=== PATIENT | male | born 1955 | race African-American/Black ===

== ENCOUNTER 2016-09-08 06:59 | Emergency (ER) | payer OTHER, MEDICAID ==
[~2016-09-08] VITALS: Ht 175.3 cm; Wt 69.0 kg
[~2016-09-08 06:59] MED LIST: ALBU6.7H IH; AMLO10TA80 PO; ASCO500C6 PO; ATOR-2 PO; BENZ100C86 PO; CEPH500C2 PO; CLOP75TA33 PO; DOCU-150 PO; FERR-63 PO; FLUO20TA29 PO; LISI10TA5 PO; LOSA100T14 PO; NICO1PAT15 TP; PANT40TA4 PO
[2016-09-08] MEDS ORDERED: METHYLPREDNISOLONE SOD SUCC 125 MG/2 ML VIAL IV STA (07:27)
[2016-09-08] MEDS ORDERED: IPRATROPIUM/ALBUTEROL 0.5-3(2.5)MG/3ML NEB HHN ONE (07:30)
[2016-09-08 07:42] LABS: BASOPHILS % 0.3 % (0.0-2.0); HEMATOCRIT. 33.2 % (42.0-52.0); HEMOGLOBIN. 11.1 g/dL (14.0-18.0); LYMPHOCYTES % 38.7 % (20.0-50.0); MEAN CORPUSCULAR HEMOGLOBIN 28.7 pg (28.0-32.0); MEAN CORPUSCULAR VOLUME 86.4 fL (80.0-94.0); MEAN PLATELET VOLUME 5.7 fl (7.4-10.4); MONOCYTES % 12.7 % (2.0-8.0); NEUTROPHILS % 43.3 % (40.0-76.0); PLATELET 398 x1000/uL (130-400); RED BLOOD CELL COUNT 3.85 mill/uL (4.7-6.1)
[2016-09-08 07:51] LABS: PARTIAL THROMBOPLASTIN TIME 28.2 sec (24.0-34.0); PROTHROMBIN TIME 10.9 sec
[2016-09-08 07:57] LABS: CARBON DIOXIDE 24 mEq/L (21-32); CHLORIDE 110 mEq/L (98-107); TROPONIN I < 0.02 ng/mL (0.00-0.04)
[2016-09-08 11:18] VITALS: BP 148/92
== END 2016-09-08 11:30 | disposition home or self-care (01) ==
LOC: ER 07:08
DX: J44.1 Chronic obstructive pulmonary disease with (acute) exacerbation (principal); I10 Essential (primary) hypertension; E78.00 Pure hypercholesterolemia, unspecified; Z91.013 Allergy to seafood; Z88.4 Allergy status to anesthetic agent; I69.351 Hemiplegia and hemiparesis following cerebral infarction affecting right dominant side
CPT/HCPCS: 36415; 71010; 80053; 83880; 84484; 85025; 85610; 85730; 93005; 94640; 96374; 99285; J2930; J7620

== ENCOUNTER 2016-09-29 03:48 | Emergency (ER) | payer OTHER, MEDICAID ==
[~2016-09-29] VITALS: Ht 185.4 cm; Wt 95.0 kg
[2016-09-29] MEDS ORDERED: SODIUM CHLORIDE 0.9% 500 ML IV ONE (04:21)
[2016-09-29] MEDS ORDERED: IPRATROPIUM BROMIDE (0.02%) 0.5MG/2.5ML NEB HHN STA (04:21)
[2016-09-29] MEDS ORDERED: ALBUTEROL (0.083%) 2.5MG/3ML NEB HHN STA (04:21)
[2016-09-29] MEDS ORDERED: METHYLPREDNISOLONE SOD SUCC 125 MG/2 ML VIAL IV STA (04:21)
[2016-09-29] MEDS ORDERED: MAGNESIUM 2 G PREMIX 50 ML IV ONE (04:30)
[2016-09-29 04:39] LABS: BASOPHILS % 0.5 % (0.0-2.0); EOSINOPHILS % 3.6 % (0.0-5.0); HEMATOCRIT. 36.8 % (42.0-52.0); HEMOGLOBIN. 12.2 g/dL (14.0-18.0); LYMPHOCYTES % 24.8 % (20.0-50.0); MEAN CORPUSCULAR HEMOGLOBIN 28.8 pg (28.0-32.0); MEAN PLATELET VOLUME 6.3 fl (7.4-10.4); MONOCYTES % 10.8 % (2.0-8.0); NEUTROPHILS % 60.3 % (40.0-76.0); PLATELET 379 x1000/uL (130-400); RED BLOOD CELL COUNT 4.23 mill/uL (4.7-6.1); RED CELL DISTRIBUTION WIDTH 16.1 % (11.6-14.6)
[2016-09-29 04:47] LABS: PROTHROMBIN TIME 10.2 sec
[2016-09-29 04:56] LABS: CARBON DIOXIDE 28 mEq/L (21-32); CHLORIDE 112 mEq/L (98-107); TROPONIN I < 0.02 ng/mL (0.00-0.04)
[2016-09-29 05:25] VITALS: BP 149/89
[2016-09-29] MEDS ORDERED: ALBUTEROL (0.5%) 2.5MG/0.5ML NEB HHN ONE ×2 (05:35→07:18)
== END 2016-09-29 06:38 | disposition home or self-care (01) ==
LOC: ER 03:48 → CANBEDREQ 16:10
DX: J44.1 Chronic obstructive pulmonary disease with (acute) exacerbation (principal); S09.90XA Unspecified injury of head, initial encounter; E78.00 Pure hypercholesterolemia, unspecified; I10 Essential (primary) hypertension; F17.200 Nicotine dependence, unspecified, uncomplicated; Z86.73 Personal history of transient ischemic attack (TIA), and cerebral infarction without residual deficits; Z88.8 Allergy status to other drugs, medicaments and biological substances; Z91.013 Allergy to seafood; X58.XXXA Exposure to other specified factors, initial encounter; Y93.89 Activity, other specified; Y99.8 Other external cause status; Y92.89 Other specified places as the place of occurrence of the external cause
CPT/HCPCS: 36415; 70450; 71010; 80053; 83605; 83690; 83880; 84484; 85025; 85610; 87040; 93005; 96365; 96375; 99285; J2930; J3475; J7040; J7611

== ENCOUNTER 2017-04-27 23:49 | Emergency (ER) | payer OTHER, MEDICAID ==
[~2017-04-27] VITALS: Ht 172.7 cm; Wt 82.0 kg
[2017-04-28] MEDS ORDERED: IPRATROPIUM BROMIDE (0.02%) 0.5MG/2.5ML NEB HHN STA (00:14)
[2017-04-28] MEDS ORDERED: ALBUTEROL (0.083%) 2.5MG/3ML NEB HHN STA (00:14)
[2017-04-28] MEDS ORDERED: METHYLPREDNISOLONE SOD SUCC 125 MG/2 ML VIAL IV STA (00:14)
[2017-04-28] MEDS ORDERED: MAGNESIUM 2 G PREMIX 50 ML IV STA (00:14)
[2017-04-28 01:05] LABS: HEMATOCRIT. 34.5 % (42.0-52.0); HEMOGLOBIN. 11.4 g/dL (14.0-18.0); MEAN CORPUSCULAR HEMOGLOBIN 29.2 pg (28.0-32.0); MEAN CORPUSCULAR VOLUME 88.5 fL (80.0-94.0); MEAN PLATELET VOLUME 6.5 fl (7.4-10.4); PLATELET 351 x1000/uL (130-400); RED BLOOD CELL COUNT 3.89 mill/uL (4.7-6.1)
[2017-04-28 01:07] LABS: CHLORIDE 107 mEq/L (98-107)
[2017-04-28 01:12] LABS: CARBON DIOXIDE 28 mEq/L (21-32)
[2017-04-28 04:52] LABS: PLATELET ESTIMATE NORMAL
[2017-04-28 06:02] VITALS: BP 115/73
[2017-05-02] MEDS ORDERED: TIOT4MIS3 IH (18:01)
[2017-05-02] MEDS ORDERED: SOFO1TAB PO (18:01)
[2017-05-02] MEDS ORDERED: BUDE6HFA INH (18:06)
[2017-05-02] MEDS ORDERED: ALBU18HF2 IH (18:06)
[2017-05-02] MEDS ORDERED: QUET50TA PO (18:16)
[2017-05-02] MEDS ORDERED: BACL-141 PO (18:20)
[2017-05-02] MEDS ORDERED: PRED1TAB PO (18:20)
[2017-05-02] MEDS ORDERED: GABA-529 PO (18:26)
== END 2017-04-28 06:04 | disposition home or self-care (01) ==
LOC: ER 23:49 → CANBEDREQ 04-28 06:31
DX: J45.901 Unspecified asthma with (acute) exacerbation (principal); J44.9 Chronic obstructive pulmonary disease, unspecified; I11.0 Hypertensive heart disease with heart failure; I50.9 Heart failure, unspecified; F17.210 Nicotine dependence, cigarettes, uncomplicated; Z71.6 Tobacco abuse counseling; Z86.19 Personal history of other infectious and parasitic diseases; Z91.013 Allergy to seafood; Z88.8 Allergy status to other drugs, medicaments and biological substances
CPT/HCPCS: 36415; 71045; 80048; 83605; 85025; 87040; 94640; 96365; 96375; 99291; 99406; J2930; J3475; J7611

== ENCOUNTER 2017-07-28 02:56 | Emergency (ER) | payer MEDICAID, OTHER ==
[~2017-07-28] VITALS: Ht 172.7 cm; Wt 63.0 kg
[~2017-07-28 02:56] MED LIST changes: +ALBU18HF2 IH; +BACL-141 PO; -BENZ100C86 PO; +BUDE6HFA INH; -CEPH500C2 PO; -DOCU-150 PO; -FERR-63 PO; +GABA-529 PO; -NICO1PAT15 TP; +PRED1TAB PO; +QUET50TA PO; +SOFO1TAB PO; +TIOT4MIS3 IH
[2017-07-28] MEDS ORDERED: IPRATROPIUM BROMIDE (0.02%) 0.5MG/2.5ML NEB HHN STA (02:59)
[2017-07-28] MEDS ORDERED: ALBUTEROL (0.083%) 2.5MG/3ML NEB HHN STA (02:59)
[2017-07-28] MEDS ORDERED: METHYLPREDNISOLONE SOD SUCC 125 MG/2 ML VIAL IV STA (02:59)
[2017-07-28] MEDS ORDERED: KETAMINE HCL 50 MG/ML 10ML IV ONE (03:00)
[2017-07-28] MEDS ORDERED: EPINEPHRINE 1:1000 1 MG/ML AMP IM ONE (03:00)
[2017-07-28] MEDS ORDERED: IPRATROPIUM/ALBUTEROL 0.5-3(2.5)MG/3ML NEB ONE (03:07)
[2017-07-28] MEDS ORDERED: CLONIDINE 0.1MG TABLET PO PRN (08:00)
[2017-07-28] MEDS ORDERED: IPRATROPIUM/ALBUTEROL 0.5-3(2.5)MG/3ML NEB HHN SCH (08:00)
[2017-07-28] MEDS ORDERED: ACETAMINOPHEN 325MG TABLET PO PRN (08:00)
[2017-07-28] MEDS ORDERED: HYDROCODONE/ACETAMINOPHEN 5/325MG TABLET PO PRN (08:00)
[2017-07-28] MEDS ORDERED: METHYLPREDNISOLONE SOD SUCC 40 MG/ML VIAL IV SCH (08:00)
[2017-07-28] MEDS ORDERED: ONDANSETRON HCL 4MG/2ML VIAL IV PRN (08:00)
[2017-07-28] MEDS ORDERED: IPRATROPIUM/ALBUTEROL 0.5-3(2.5)MG/3ML NEB HHN PRN (08:00)
[2017-07-28] MEDS ORDERED: BUDESONIDE 0.5MG/2ML NEB HHN SCH (08:00)
[2017-07-28 08:23] LABS: HEMATOCRIT. 35.2 % (42.0-52.0); HEMOGLOBIN. 12.2 g/dL (14.0-18.0); MEAN CORPUSCULAR VOLUME 89.5 fL (80.0-94.0); MEAN PLATELET VOLUME 6.3 fl (7.4-10.4); PLATELET 319 x1000/uL (130-400); RED BLOOD CELL COUNT 3.94 mill/uL (4.7-6.1); RED CELL DISTRIBUTION WIDTH 14.8 % (11.6-14.6)
[2017-07-28 08:25] LABS: CLARITY URINE CLEAR (CLEAR); COLOR URINE YELLOW (YELLOW); KETONES URINE NEGATIVE (NEGATIVE); LEUKOCYTE ESTERASE URINE NEGATIVE (NEGATIVE); NITRITE URINE NEGATIVE (NEGATIVE); OCCULT BLOOD URINE NEGATIVE (NEGATIVE); PROTEIN URINE NEGATIVE (NEGATIVE); SPECIFIC GRAVITY URINE 1.015 (1.005-1.030); UROBILINOGEN URINE 0.2 E.U./dL (0.2-1.0)
[2017-07-28 08:28] LABS: CHLORIDE 106 mEq/L (98-107)
[2017-07-28 08:50] LABS: *AMPHETAMINES SCREEN URINE NEGATIVE (NEGATIVE); *BARBITURATES SCREEN URINE NEGATIVE (NEGATIVE); *BENZODIAZEPINES SCREEN URINE PRESUMTIVE POSITIVE (NEGATIVE); METHADONE URINE SCREEN NEGATIVE (NEGATIVE); OPIATES URINE SCREEN NEGATIVE (NEGATIVE)
[2017-07-28 08:51] LABS: CANNABINOID URINE SCREEN NEGATIVE (NEGATIVE); PHENCYCLIDINE URINE SCREEN NEGATIVE (NEGATIVE)
[2017-07-28 08:58] LABS: *COCAINE SCREEN URINE PRESUMTIVE POSITIVE (NEGATIVE)
[2017-07-28] MEDS ORDERED: GABAPENTIN 100MG CAPSULE PO SCH (09:00)
[2017-07-28] MEDS ORDERED: FLUOXETINE HCL 20MG CAPSULE PO SCH (09:00)
[2017-07-28 09:16] LABS: PLATELET ESTIMATE NORMAL
[2017-07-28] MEDS ORDERED: FLUOXETINE HCL 20MG CAPSULE PO NR (11:00)
[2017-07-28] MEDS ORDERED: CLOPIDOGREL 75MG TABLET PO SCH (11:00)
[2017-07-28 11:55] LABS: BG BASE EXCESS -1.3 mmol/L (-2.0-2.0); BG BILEVEL POS AIRWAY PRESSURE 15/5; BG CARBOXYHEMOGLOBIN 0.3 % (0.5-1.5); BG DEOXYHEMOGLOBIN 0.6 % (0.0-5.0); BG FRACTION INSPIRED OXYGEN 100; BG HCO3 ACT 24.1 mmol/L (22.0-26.0); BG METHEMOGLOBIN 0.3 % (0.0-1.5); BG OXYGEN SATURATION 99.4 % (92.0-98.5); BG OXYHEMOGLOBIN 98.8 % (94.0-97.0); BG PCO2 42.9 mmHg (35.0-45.0); BG PH 7.367 (7.350-7.450); BG PO2 306.8 mmHg (75.0-100.0); BG SAMPLE SITE RIGHT BRACHIAL; BG TOTAL HEMOGLOBIN 13.2 g/dL (12.0-18.0); BG VENT MODE MASK - BIPAP; BG VENT RATE 20 set
[2017-07-28] MEDS ORDERED: NICOTINE 7MG PATCH TD SCH (13:00)
[2017-07-28 15:47] VITALS: BP 140/87
[2017-07-28] MEDS ORDERED: QUETIAPINE FUMARATE 50MG TABLET PO SCH (17:00)
[2017-07-28] MEDS ORDERED: ATORVASTATIN CALCIUM 40MG TABLET PO SCH (21:00)
== END 2017-07-28 15:56 | disposition left against medical advice (07) ==
LOC: ER 03:17 → EDBEDREQ 04:09 → EDBEDREQTM 04:09 → EDBEDREQSVC 04:09 → CANRESERV 15:25 → ENRESERV 15:25 → ER 15:56 → CANBEDREQ 16:21
DX: J44.1 Chronic obstructive pulmonary disease with (acute) exacerbation (principal); J96.00 Acute respiratory failure, unspecified whether with hypoxia or hypercapnia; J45.901 Unspecified asthma with (acute) exacerbation; I11.0 Hypertensive heart disease with heart failure; I50.9 Heart failure, unspecified; F17.210 Nicotine dependence, cigarettes, uncomplicated; F14.10 Cocaine abuse, uncomplicated; D64.9 Anemia, unspecified
CPT/HCPCS: 36415; 36600; 71045; 80053; 80305; 81003; 82375; 82805; 85025; 94640; 94660; 96372; 96374; 96375; 99291; J2930; J3490; J7620; Z7610

== ENCOUNTER 2018-01-31 04:23 | Emergency (ER) | payer MEDICAID, OTHER ==
[~2018-01-31] VITALS: Ht 182.9 cm; Wt 82.0 kg
[~2018-01-31 04:23] MED LIST changes: +ACET-2708 MT; -ASCO500C6 PO; +CICL6.6S5 TP; +DICL100G31 TP; +FLUT15.88 BOTHNSTRLS; -LISI10TA5 PO; +MELA3TAB PO; +NICO-645 TP; -PRED1TAB PO; +[UNRECOGNIZED DRUG - CODE] MM
[2018-01-31] MEDS ORDERED: METHYLPREDNISOLONE SOD SUCC 125 MG/2 ML VIAL IV STA (04:36)
[2018-01-31] MEDS ORDERED: ALBUTEROL (0.083%) 2.5MG/3ML NEB HHN STA (04:36)
[2018-01-31] MEDS ORDERED: IPRATROPIUM BROMIDE (0.02%) 0.5MG/2.5ML NEB HHN STA (04:36)
[2018-01-31] MEDS ORDERED: EPINEPHRINE 1:1000 1 MG/ML AMP IM ONE (04:45)
[2018-01-31] MEDS ORDERED: MAGNESIUM 2 G PREMIX 50 ML IV ONE (04:45)
[2018-01-31] MEDS ORDERED: ALBUTEROL (0.5%) 2.5MG/0.5ML NEB HHN ONE (04:47)
[2018-01-31] MEDS ORDERED: IPRATROPIUM/ALBUTEROL 0.5-3(2.5)MG/3ML NEB ONE (04:48)
[2018-01-31 05:23] LABS: PROTHROMBIN TIME 9.8 sec (9.1-11.1)
[2018-01-31 05:27] LABS: CHLORIDE 108 mEq/L (98-107); ETHANOL BLOOD < 10 mg/dL
[2018-01-31 05:30] LABS: BASOPHILS % 0.2 % (0.0-2.0); HEMATOCRIT. 36.8 % (42.0-52.0); HEMOGLOBIN. 12.2 g/dL (14.0-18.0); LYMPHOCYTES % 37.1 % (20.0-50.0); MEAN CORPUSCULAR HEMOGLOBIN 29.5 pg (28.0-32.0); MEAN CORPUSCULAR VOLUME 88.8 fL (80.0-94.0); MEAN PLATELET VOLUME 6.5 fl (7.4-10.4); MONOCYTES % 12.9 % (2.0-8.0); NEUTROPHILS % 46.8 % (40.0-76.0); PLATELET 301 x1000/uL (130-400); RED BLOOD CELL COUNT 4.14 mill/uL (4.7-6.1); RED CELL DISTRIBUTION WIDTH 18.3 % (11.6-14.6)
[2018-01-31] MEDS ORDERED: HYDROCODONE/ACETAMINOPHEN 5/325MG TABLET PO PRN (07:45)
[2018-01-31] MEDS ORDERED: GUAIFENESIN 200MG/10ML SUGAR FREE UDC PO PRN (07:45)
[2018-01-31] MEDS ORDERED: ONDANSETRON HCL 4MG/2ML INJ IV PRN (07:45)
[2018-01-31] MEDS ORDERED: IPRATROPIUM/ALBUTEROL 0.5-3(2.5)MG/3ML NEB INH PRN (07:45)
[2018-01-31] MEDS ORDERED: ACETAMINOPHEN 325MG TABLET PO PRN (07:45)
[2018-01-31] MEDS ORDERED: MAGNESIUM/ALUMINUM HYDROXIDE/SIMETHICONE 30ML UDC PO PRN (07:45)
[2018-01-31] MEDS ORDERED: CLONIDINE 0.1MG TABLET PO PRN (07:45)
[2018-01-31] MEDS ORDERED: DOCUSATE SODIUM 100MG CAPSULE PO PRN (07:45)
[2018-01-31] MEDS ORDERED: ENOXAPARIN 40MG/0.4ML SYR SUBCUT SCH (07:45)
[2018-01-31 08:37] LABS: BG BASE EXCESS -3.4 mmol/L (-2.0-2.0); BG BILEVEL POS AIRWAY PRESSURE ST=18/5; BG CARBOXYHEMOGLOBIN 0.4 % (0.5-1.5); BG DEOXYHEMOGLOBIN 2.1 % (0.0-5.0); BG FRACTION INSPIRED OXYGEN 40; BG HCO3 ACT 21.8 mmol/L (22.0-26.0); BG METHEMOGLOBIN 0.5 % (0.0-1.5); BG OXYGEN SATURATION 97.9 % (92.0-98.5); BG PCO2 40.1 mmHg (35.0-45.0); BG PH 7.354 (7.350-7.450); BG PO2 116.7 mmHg (75.0-100.0); BG PRESSURE SUPPORT 13; BG SAMPLE SITE RIGHT BRACHIAL; BG TOTAL HEMOGLOBIN 12.3 g/dL (12.0-18.0); BG VENT MODE MASK - BIPAP; BG VENT RATE 12 set
[2018-01-31 08:51] LABS: CHLORIDE 108 mEq/L (98-107)
[2018-01-31 10:14] LABS: *AMPHETAMINES SCREEN URINE NEGATIVE (NEGATIVE); *BARBITURATES SCREEN URINE NEGATIVE (NEGATIVE); *BENZODIAZEPINES SCREEN URINE NEGATIVE (NEGATIVE); *COCAINE SCREEN URINE PRESUMTIVE POSITIVE (NEGATIVE); CANNABINOID URINE SCREEN NEGATIVE (NEGATIVE); METHADONE URINE SCREEN NEGATIVE (NEGATIVE); OPIATES URINE SCREEN NEGATIVE (NEGATIVE); PHENCYCLIDINE URINE SCREEN NEGATIVE (NEGATIVE)
[2018-01-31 11:08] VITALS: BP 138/91
[2018-01-31] MEDS ORDERED: METHYLPREDNISOLONE SOD SUCC 125 MG/2 ML VIAL IV SCH (14:00)
== END 2018-01-31 11:15 | disposition left against medical advice (07) ==
LOC: ER 04:23 → EDBEDREQTM 05:46 → EDBEDREQSVC 05:46 → EDBEDREQ 05:46 → ENRESERV 10:39 → CANRESERV 10:39 → ER 11:15 → CANBEDREQ 13:10
DX: J96.90 Respiratory failure, unspecified, unspecified whether with hypoxia or hypercapnia (principal); J44.1 Chronic obstructive pulmonary disease with (acute) exacerbation; I11.0 Hypertensive heart disease with heart failure; I50.9 Heart failure, unspecified; F17.200 Nicotine dependence, unspecified, uncomplicated; Z79.899 Other long term (current) drug therapy; Z88.8 Allergy status to other drugs, medicaments and biological substances
CPT/HCPCS: 36415; 36600; 71045; 80048; 80053; 80305; 82375; 82805; 83605; 83735; 83880; 84484; 85025; 85610; 87040; 93005; 94660; 96365; 96366; 96372; 96375; 99291; G0482; J2930; J3475; J3490; J7611; J7620

== ENCOUNTER 2018-07-28 01:00 | Inpatient (IN) | payer MEDICAID ==
[2018-07-28] VITALS (14 sets, daily range): BP systolic 109–141; BP diastolic 63–103
[~2018-07-28] VITALS: Ht 175.3 cm; Wt 78.5 kg
[2018-07-28] MEDS ORDERED: METHYLPREDNISOLONE SOD SUCC 125 MG/2 ML VIAL IV STA (01:11)
[2018-07-28] MEDS ORDERED: ONDANSETRON HCL 4MG/2ML INJ IV STA (01:11)
[2018-07-28] MEDS ORDERED: IPRATROPIUM BROMIDE (0.02%) 0.5MG/2.5ML NEB HHN STA (01:11)
[2018-07-28] MEDS ORDERED: MAGNESIUM 2 G PREMIX 50 ML IV ONE (01:15)
[2018-07-28] MEDS ORDERED: ALBUTEROL (0.083%) 2.5MG/3ML NEB HHN SCH (01:30)
[2018-07-28 01:57] LABS: BASOPHILS % 0.6 % (0.0-2.0); EOSINOPHILS % 9.5 % (0.0-5.0); HEMATOCRIT. 38.1 % (42.0-52.0); HEMOGLOBIN. 12.6 g/dL (14.0-18.0); LYMPHOCYTES % 26.1 % (20.0-50.0); MEAN CORPUSCULAR HEMOGLOBIN 31.4 pg (28.0-32.0); MEAN CORPUSCULAR VOLUME 94.6 fL (80.0-94.0); MEAN PLATELET VOLUME 6.1 fl (7.4-10.4); MONOCYTES % 14.7 % (2.0-8.0); NEUTROPHILS % 49.1 % (40.0-76.0); PLATELET 375 x1000/uL (130-400); RED BLOOD CELL COUNT 4.02 mill/uL (4.7-6.1); RED CELL DISTRIBUTION WIDTH 14.6 % (11.6-14.6)
[2018-07-28 01:59] LABS: BG BASE EXCESS -3.3 mmol/L (-2.0-2.0); BG BILEVEL POS AIRWAY PRESSURE 18/5; BG CARBOXYHEMOGLOBIN 1.1 % (0.5-1.5); BG DEOXYHEMOGLOBIN 0.6 % (0.0-5.0); BG FRACTION INSPIRED OXYGEN 60; BG HCO3 ACT 24.2 mmol/L (22.0-26.0); BG METHEMOGLOBIN 0.2 % (0.0-1.5); BG OXYGEN SATURATION 99.4 % (92.0-98.5); BG OXYHEMOGLOBIN 98.1 % (94.0-97.0); BG PCO2 54.1 mmHg (35.0-45.0); BG PH 7.269 (7.350-7.450); BG PO2 198.5 mmHg (75.0-100.0); BG SAMPLE SITE RIGHT RADIAL; BG TOTAL HEMOGLOBIN 13.5 g/dL (12.0-18.0); BG VENT MODE MASK - BIPAP; BG VENT RATE 14 set
[2018-07-28 02:03] LABS: CHLORIDE 111 mEq/L (98-107)
[2018-07-28] MEDS ORDERED: DOCUSATE SODIUM 100MG CAPSULE PO PRN (06:00)
[2018-07-28] MEDS ORDERED: ONDANSETRON HCL 4MG/2ML INJ IV PRN (06:00)
[2018-07-28] MEDS ORDERED: ACETAMINOPHEN 325MG TABLET PO PRN (06:00)
[2018-07-28] MEDS ORDERED: NA PHOS,M-B/NA PHOS,DI-BA ENEMA 118ML PR PRN (06:00)
[2018-07-28] MEDS ORDERED: CLONIDINE 0.1MG TABLET PO PRN (06:00)
[2018-07-28] MEDS ORDERED: MAGNESIUM/ALUMINUM HYDROXIDE/SIMETHICONE 30ML UDC PO PRN (06:00)
[2018-07-28] MEDS ORDERED: DIPHENHYDRAMINE 50MG/ML VIAL IV PRN (06:00)
[2018-07-28] MEDS ORDERED: HYDROCODONE/ACETAMINOPHEN 5/325MG TABLET PO PRN (06:00)
[2018-07-28] MEDS ORDERED: LORAZEPAM 2MG/ML CPJ IV PRN (06:00)
[2018-07-28] MEDS ORDERED: HYDROMORPHONE HCL/PF 2MG/ML CPJ IV PRN (06:00)
[2018-07-28] MEDS ORDERED: GUAIFENESIN 200MG/10ML SUGAR FREE UDC PO PRN (06:00)
[2018-07-28 08:36] LABS: CHLORIDE 110 mEq/L (98-107)
[2018-07-28] MEDS: METHYLPREDNISOLONE SOD SUCC 125 MG/2 ML VIAL IV SCH ×2 (08:42→12:08)
[2018-07-28] MEDS: ASPIRIN 81MG EC TABLET PO SCH (08:42)
[2018-07-28] MEDS: ENOXAPARIN 40MG/0.4ML SYR SUBCUT SCH (08:42)
[2018-07-28] MEDS: LEVOFLOXACIN 500MG PREMIX 100 ML IV SCH (08:43)
[2018-07-28] MEDS: IPRATROPIUM/ALBUTEROL 0.5-3(2.5)MG/3ML NEB INH PRN ×2 (08:43→12:26)
[2018-07-28 11:19] LABS: BG BASE EXCESS -0.5 mmol/L (-2.0-2.0); BG CARBOXYHEMOGLOBIN 0.3 % (0.5-1.5); BG DEOXYHEMOGLOBIN 6.3 % (0.0-5.0); BG FRACTION INSPIRED OXYGEN 34; BG HCO3 ACT 24.5 mmol/L (22.0-26.0); BG METHEMOGLOBIN 0.3 % (0.0-1.5); BG OXYGEN SATURATION 93.7 % (92.0-98.5); BG OXYHEMOGLOBIN 93.1 % (94.0-97.0); BG PCO2 41.5 mmHg (35.0-45.0); BG PH 7.389 (7.350-7.450); BG SAMPLE SITE RIGHT RADIAL; BG TOTAL HEMOGLOBIN 12.6 g/dL (12.0-18.0); BG VENT MODE NASAL CANNULA
[2018-07-28] MEDS ORDERED: AMLODIPINE 2.5MG TABLET PO NR (11:24)
[2018-07-28] MEDS ORDERED: PNEUMOCOCCAL 23-VAL P-SAC VAC 0.5 ML IM ONE (12:00)
[2018-07-28 16:07] LABS: BASOPHILS % 0.2 % (0.0-2.0); HEMATOCRIT. 34.8 % (42.0-52.0); HEMOGLOBIN. 11.6 g/dL (14.0-18.0); LYMPHOCYTES % 10.7 % (20.0-50.0); MEAN CORPUSCULAR HEMOGLOBIN 31.4 pg (28.0-32.0); MEAN CORPUSCULAR VOLUME 93.9 fL (80.0-94.0); MEAN PLATELET VOLUME 6.5 fl (7.4-10.4); MONOCYTES % 1.4 % (2.0-8.0); NEUTROPHILS % 87.7 % (40.0-76.0); PLATELET 342 x1000/uL (130-400); RED CELL DISTRIBUTION WIDTH 14.5 % (11.6-14.6)
[2018-07-28 16:08] LABS: CHLORIDE 107 mEq/L (98-107)
[2018-07-28] MEDS: NICOTINE 7MG PATCH TD SCH (17:27)
[2018-07-28] MEDS: IPRATROPIUM/ALBUTEROL 0.5-3(2.5)MG/3ML NEB HHN SCH (20:57)
[2018-07-28] MEDS ORDERED: QUETIAPINE FUMARATE 50MG TABLET PO SCH (21:00)
[2018-07-28] MEDS: METHYLPREDNISOLONE SOD SUCC 40 MG/ML VIAL IV SCH (21:30)
[2018-07-28 22:24] LABS: *AMPHETAMINES SCREEN URINE NEGATIVE (NEGATIVE); *BARBITURATES SCREEN URINE NEGATIVE (NEGATIVE); *BENZODIAZEPINES SCREEN URINE NEGATIVE (NEGATIVE); *COCAINE SCREEN URINE PRESUMTIVE POSITIVE (NEGATIVE); METHADONE URINE SCREEN NEGATIVE (NEGATIVE); OPIATES URINE SCREEN NEGATIVE (NEGATIVE)
[2018-07-28 22:25] LABS: CANNABINOID URINE SCREEN NEGATIVE (NEGATIVE); PHENCYCLIDINE URINE SCREEN NEGATIVE (NEGATIVE)
[2018-07-29] VITALS (9 sets, daily range): BP systolic 110–150; BP diastolic 69–94
[2018-07-29] MEDS: IPRATROPIUM/ALBUTEROL 0.5-3(2.5)MG/3ML NEB HHN SCH ×2 (02:40→10:16)
[2018-07-29] MEDS: METHYLPREDNISOLONE SOD SUCC 40 MG/ML VIAL IV SCH (05:01)
[2018-07-29 06:41] LABS: HEMATOCRIT. 34.8 % (42.0-52.0); HEMOGLOBIN. 11.4 g/dL (14.0-18.0); MEAN CORPUSCULAR HEMOGLOBIN 30.9 pg (28.0-32.0); MEAN PLATELET VOLUME 6.2 fl (7.4-10.4); PLATELET 331 x1000/uL (130-400); RED CELL DISTRIBUTION WIDTH 14.5 % (11.6-14.6)
[2018-07-29 06:59] LABS: CHLORIDE 110 mEq/L (98-107)
[2018-07-29 07:22] LABS: LDL CHOLESTEROL 33 mg/dL (5-100)
[2018-07-29 07:23] LABS: HDL CHOLESTEROL 94 mg/dL (40-59); T4 FREE 0.75 ng/dL (0.76-1.46)
[2018-07-29] MEDS ORDERED: AMLODIPINE 2.5MG TABLET PO SCH (09:00)
[2018-07-29 09:23] LABS: PLATELET ESTIMATE NORMAL
[2018-07-29] MEDS: ASPIRIN 81MG EC TABLET PO SCH (10:18)
[2018-07-29] MEDS: NICOTINE 7MG PATCH TD SCH (10:18)
[2018-07-29] MEDS: LEVOFLOXACIN 500MG PREMIX 100 ML IV SCH (10:19)
[2018-07-29] MEDS: ENOXAPARIN 40MG/0.4ML SYR SUBCUT SCH (10:21)
== END 2018-07-29 12:54 | disposition home or self-care (01) | DRG 133 ==
LOC: ER 01:00 → 5EST 02:54 → ENRESERV 04:25
PROVIDERS: ADMIT Internal Medicine; ATTEND Internal Medicine
PROC: 5A09357 Assistance with Respiratory Ventilation, Less than 24 Consecutive Hours, Continuous Positive Airway Pressure (ICD-10-PCS; principal; 2018-07-28)
DX: J96.02 Acute respiratory failure with hypercapnia (principal); J69.0 Pneumonitis due to inhalation of food and vomit; E87.2 Acidosis; I11.0 Hypertensive heart disease with heart failure; R65.10 Systemic inflammatory response syndrome (SIRS) of non-infectious origin without acute organ dysfunction; I50.9 Heart failure, unspecified; I69.351 Hemiplegia and hemiparesis following cerebral infarction affecting right dominant side; D64.9 Anemia, unspecified; E78.5 Hyperlipidemia, unspecified; F14.90 Cocaine use, unspecified, uncomplicated; F17.210 Nicotine dependence, cigarettes, uncomplicated; I25.10 Atherosclerotic heart disease of native coronary artery without angina pectoris; J44.1 Chronic obstructive pulmonary disease with (acute) exacerbation; K21.9 Gastro-esophageal reflux disease without esophagitis; T38.0X5A Adverse effect of glucocorticoids and synthetic analogues, initial encounter; B19.20 Unspecified viral hepatitis C without hepatic coma; Z88.9 Allergy status to unspecified drugs, medicaments and biological substances; Z71.6 Tobacco abuse counseling; Y92.89 Other specified places as the place of occurrence of the external cause
CPT/HCPCS: 36415; 36600; 71045; 80048; 80061; 80305; 82375; 82805; 83605; 83880; 84439; 84443; 84484; 87804; 93005; 93306; 93970; 96365; 96375; 99291; J1650; J1956; J2060; J2405; J2920; J2930; J3475; J7050; J7611; J7620

== ENCOUNTER 2018-08-02 23:54 | Inpatient (IN) | payer MEDICAID ==
[~2018-08-02] VITALS: Ht 167.6 cm; Wt 71.0 kg
[2018-08-03] VITALS (58 sets, daily range): BP systolic 98–147; BP diastolic 60–111
[2018-08-03] MEDS ORDERED: ONDANSETRON HCL 4MG/2ML INJ IV STA (00:04)
[2018-08-03] MEDS ORDERED: IPRATROPIUM BROMIDE (0.02%) 0.5MG/2.5ML NEB HHN STA (00:04)
[2018-08-03] MEDS ORDERED: METHYLPREDNISOLONE SOD SUCC 125 MG/2 ML VIAL IV STA (00:04)
[2018-08-03] MEDS ORDERED: MAGNESIUM 2 G PREMIX 50 ML IV ONE (00:15)
[2018-08-03 00:30] LABS: CHLORIDE 113 mEq/L (98-107)
[2018-08-03] MEDS: ALBUTEROL (0.083%) 2.5MG/3ML NEB HHN SCH ×2 (00:30→02:00)
[2018-08-03 00:35] LABS: BG BASE EXCESS -5.9 mmol/L (-2.0-2.0); BG BILEVEL POS AIRWAY PRESSURE 20/5; BG CARBOXYHEMOGLOBIN 0.3 % (0.5-1.5); BG DEOXYHEMOGLOBIN 0.6 % (0.0-5.0); BG FRACTION INSPIRED OXYGEN 100; BG HCO3 ACT 21.3 mmol/L (22.0-26.0); BG METHEMOGLOBIN 0.4 % (0.0-1.5); BG OXYGEN SATURATION 99.4 % (92.0-98.5); BG OXYHEMOGLOBIN 98.7 % (94.0-97.0); BG PCO2 48.9 mmHg (35.0-45.0); BG PH 7.257 (7.350-7.450); BG PO2 542.7 mmHg (75.0-100.0); BG SAMPLE SITE RIGHT RADIAL; BG TOTAL HEMOGLOBIN 12.7 g/dL (12.0-18.0); BG VENT MODE MASK - BIPAP
[2018-08-03 00:43] LABS: RED BLOOD CELL COUNT 4.14 mill/uL (4.7-6.1)
[2018-08-03 00:44] LABS: EOSINOPHILS % 5.3 % (0.0-5.0); HEMATOCRIT. 38.5 % (42.0-52.0); HEMOGLOBIN. 12.7 g/dL (14.0-18.0); LYMPHOCYTES % 22.1 % (20.0-50.0); MEAN CORPUSCULAR HEMOGLOBIN 30.8 pg (28.0-32.0); MEAN CORPUSCULAR VOLUME 93.1 fL (80.0-94.0); MEAN PLATELET VOLUME 6.1 fl (7.4-10.4); MONOCYTES % 11.7 % (2.0-8.0); NEUTROPHILS % 60.7 % (40.0-76.0); PLATELET 296 x1000/uL (130-400); RED CELL DISTRIBUTION WIDTH 14.3 % (11.6-14.6)
[2018-08-03 00:45] LABS: BASOPHILS % 0.2 % (0.0-2.0)
[2018-08-03] MEDS ORDERED: PROPOFOL 10MG/ML 100ML 100 ML IV ONE (01:00)
[2018-08-03] MEDS ORDERED: ETOMIDATE 2MG/ML 10ML VIAL IV ONE ×2 (01:00→01:03)
[2018-08-03] MEDS ORDERED: SUCCINYLCHOLINE CHLORIDE 200MG/10ML IV ONE ×2 (01:00→01:03)
[2018-08-03] MEDS ORDERED: MIDAZOLAM HCL 50 MG in DEXTROSE 5% WATER 40 ML IV ONE (02:00)
[2018-08-03 02:02] LABS: BG BASE EXCESS -8.7 mmol/L (-2.0-2.0); BG CARBOXYHEMOGLOBIN 0.3 % (0.5-1.5); BG DEOXYHEMOGLOBIN 2.2 % (0.0-5.0); BG FRACTION INSPIRED OXYGEN 40; BG HCO3 ACT 21.3 mmol/L (22.0-26.0); BG METHEMOGLOBIN 0.5 % (0.0-1.5); BG OXYGEN SATURATION 97.8 % (92.0-98.5); BG PCO2 65.6 mmHg (35.0-45.0); BG PH 7.129 (7.350-7.450); BG SAMPLE SITE RIGHT RADIAL; BG TIDAL VOLUME(mL) 500 mL; BG TOTAL HEMOGLOBIN 13.1 g/dL (12.0-18.0); BG VENT MODE VENT - A/C; BG VENT RATE 16 set
[2018-08-03] MEDS: MIDAZOLAM HCL 50 MG in DEXTROSE 5% WATER 40 ML IV PRN ×2 (02:19→07:58)
[2018-08-03] MEDS ORDERED: SODIUM CHLORIDE 0.9% 1,000 ML IV ONE ×3 (03:11)
[2018-08-03 05:30] LABS: BG BASE EXCESS -6.1 mmol/L (-2.0-2.0); BG CARBOXYHEMOGLOBIN 0.3 % (0.5-1.5); BG DEOXYHEMOGLOBIN 4.5 % (0.0-5.0); BG FRACTION INSPIRED OXYGEN 40; BG METHEMOGLOBIN 0.4 % (0.0-1.5); BG OXYGEN SATURATION 95.5 % (92.0-98.5); BG OXYHEMOGLOBIN 94.8 % (94.0-97.0); BG PCO2 48.4 mmHg (35.0-45.0); BG PH 7.256 (7.350-7.450); BG PO2 89.7 mmHg (75.0-100.0); BG SAMPLE SITE RIGHT RADIAL; BG TIDAL VOLUME(mL) 500 mL; BG TOTAL HEMOGLOBIN 11.9 g/dL (12.0-18.0); BG VENT MODE VENT - A/C; BG VENT RATE 16 set
[2018-08-03] MEDS ORDERED: IPRATROPIUM/ALBUTEROL 0.5-3(2.5)MG/3ML NEB HHN PRN (09:30)
[2018-08-03] MEDS ORDERED: IPRATROPIUM BROMIDE (0.02%) 0.5MG/2.5ML NEB HHN SCH ×2 (09:30→12:00)
[2018-08-03] MEDS ORDERED: PROPOFOL 10MG/ML 100ML 100 ML IV PRN (09:30)
[2018-08-03] MEDS ORDERED: FENTANYL CITRATE/PF 500 MCG in SODIUM CHLORIDE 0.9% 40 ML IV PRN (10:00)
[2018-08-03] MEDS ORDERED: MIDAZOLAM HCL 100 MG in DEXT 5% WATER 80 ML IV PRN (10:00)
[2018-08-03] MEDS ORDERED: ACETAMINOPHEN 325MG TABLET PO PRN (10:00)
[2018-08-03] MEDS: METHYLPREDNISOLONE SOD SUCC 125 MG/2 ML VIAL IV SCH ×3 (10:34→21:20)
[2018-08-03] MEDS: ENOXAPARIN 40MG/0.4ML SYR SUBCUT SCH (10:35)
[2018-08-03] MEDS: FENTANYL CITRATE/PF 500 MCG in SODIUM CHLORIDE 0.9% 40 ML IV PRN ×2 (10:36→18:34)
[2018-08-03] MEDS: MIDAZOLAM HCL 100 MG in DEXT 5% WATER 80 ML IV PRN ×2 (11:50→23:02)
[2018-08-03] MEDS: IPRATROPIUM/ALBUTEROL 0.5-3(2.5)MG/3ML NEB HHN SCH ×4 (12:26→23:57)
[2018-08-03 12:30] LABS: CLARITY URINE CLEAR (CLEAR); COLOR URINE YELLOW (YELLOW); KETONES URINE NEGATIVE (NEGATIVE); LEUKOCYTE ESTERASE URINE NEGATIVE (NEGATIVE); NITRITE URINE NEGATIVE (NEGATIVE); OCCULT BLOOD URINE 2+ (NEGATIVE); PROTEIN URINE NEGATIVE (NEGATIVE); SPECIFIC GRAVITY URINE 1.016 (1.005-1.030); UROBILINOGEN URINE 0.2 E.U./dL (0.2-1.0)
[2018-08-03 13:00] LABS: *BENZODIAZEPINES SCREEN URINE PRESUMTIVE POSITIVE (NEGATIVE); *COCAINE SCREEN URINE PRESUMTIVE POSITIVE (NEGATIVE); METHADONE URINE SCREEN NEGATIVE (NEGATIVE); OPIATES URINE SCREEN NEGATIVE (NEGATIVE)
[2018-08-03 13:01] LABS: *AMPHETAMINES SCREEN URINE NEGATIVE (NEGATIVE); *BARBITURATES SCREEN URINE NEGATIVE (NEGATIVE); CANNABINOID URINE SCREEN NEGATIVE (NEGATIVE); PHENCYCLIDINE URINE SCREEN NEGATIVE (NEGATIVE)
[2018-08-04] VITALS (87 sets, daily range): BP systolic 102–156; BP diastolic 63–109
[2018-08-04] MEDS: FENTANYL CITRATE/PF 500 MCG in SODIUM CHLORIDE 0.9% 40 ML IV PRN ×3 (02:52→22:20)
[2018-08-04] MEDS: IPRATROPIUM/ALBUTEROL 0.5-3(2.5)MG/3ML NEB HHN SCH ×5 (03:26→20:52)
[2018-08-04] MEDS: METHYLPREDNISOLONE SOD SUCC 125 MG/2 ML VIAL IV SCH ×4 (04:57→22:11)
[2018-08-04 06:01] LABS: HEMOGLOBIN. 11.9 g/dL (14.0-18.0); MEAN CORPUSCULAR VOLUME 93.8 fL (80.0-94.0); MEAN PLATELET VOLUME 6.8 fl (7.4-10.4); PLATELET 289 x1000/uL (130-400); RED BLOOD CELL COUNT 3.84 mill/uL (4.7-6.1); RED CELL DISTRIBUTION WIDTH 14.6 % (11.6-14.6)
[2018-08-04 06:14] LABS: CHLORIDE 109 mEq/L (98-107)
[2018-08-04] MEDS: MIDAZOLAM HCL 100 MG in DEXT 5% WATER 80 ML IV PRN ×2 (07:03→22:11)
[2018-08-04 07:48] LABS: PLATELET ESTIMATE NORMAL
[2018-08-04] MEDS ORDERED: PROPOFOL 10MG/ML 100ML 100 ML IV PRN (08:30)
[2018-08-04] MEDS ORDERED: LACTULOSE 20G/30ML UDC PO PRN (09:15)
[2018-08-04] MEDS ORDERED: DOCUSATE SODIUM 250MG CAPSULE PO PRN (09:15)
[2018-08-04] MEDS: ENOXAPARIN 40MG/0.4ML SYR SUBCUT SCH (10:46)
[2018-08-04] MEDS: PANTOPRAZOLE SODIUM 40 MG/VIAL IV SCH (10:46)
[2018-08-04 11:21] LABS: BG BASE EXCESS -2.3 mmol/L (-2.0-2.0); BG CARBOXYHEMOGLOBIN 0.2 % (0.5-1.5); BG DEOXYHEMOGLOBIN 3.3 % (0.0-5.0); BG FRACTION INSPIRED OXYGEN 40; BG HCO3 ACT 24.3 mmol/L (22.0-26.0); BG METHEMOGLOBIN 0.4 % (0.0-1.5); BG OXYGEN SATURATION 96.7 % (92.0-98.5); BG OXYHEMOGLOBIN 96.1 % (94.0-97.0); BG PCO2 49.4 mmHg (35.0-45.0); BG PO2 92.5 mmHg (75.0-100.0); BG PRESSURE SUPPORT 8; BG SAMPLE SITE RIGHT RADIAL; BG TOTAL HEMOGLOBIN 12.9 g/dL (12.0-18.0); BG VENT MODE VENT - CPAP
[2018-08-05] VITALS (90 sets, daily range): BP systolic 101–161; BP diastolic 64–101
[2018-08-05] MEDS: IPRATROPIUM/ALBUTEROL 0.5-3(2.5)MG/3ML NEB HHN SCH ×6 (00:31→20:51)
[2018-08-05] MEDS: METHYLPREDNISOLONE SOD SUCC 125 MG/2 ML VIAL IV SCH ×3 (04:49→18:08)
[2018-08-05 06:05] LABS: HEMATOCRIT. 33.4 % (42.0-52.0); MEAN CORPUSCULAR HEMOGLOBIN 30.8 pg (28.0-32.0); MEAN CORPUSCULAR VOLUME 93.9 fL (80.0-94.0); MEAN PLATELET VOLUME 6.8 fl (7.4-10.4); PLATELET 283 x1000/uL (130-400); RED BLOOD CELL COUNT 3.56 mill/uL (4.7-6.1); RED CELL DISTRIBUTION WIDTH 14.2 % (11.6-14.6)
[2018-08-05 06:16] LABS: CHLORIDE 108 mEq/L (98-107)
[2018-08-05 07:42] LABS: PLATELET ESTIMATE NORMAL
[2018-08-05] MEDS: MIDAZOLAM HCL 100 MG in DEXT 5% WATER 80 ML IV PRN ×2 (08:19→20:03)
[2018-08-05] MEDS: PANTOPRAZOLE SODIUM 40 MG/VIAL IV SCH (09:50)
[2018-08-05] MEDS: ENOXAPARIN 40MG/0.4ML SYR SUBCUT SCH (09:51)
[2018-08-05] MEDS: SODIUM CHLORIDE 0.45% 1,000 ML IV SCH (10:32)
[2018-08-05] MEDS ORDERED: TERBUTALINE SULFATE 1MG/ML VIAL SUBCUT SCH (12:00)
[2018-08-05] MEDS: FENTANYL CITRATE/PF 500 MCG in SODIUM CHLORIDE 0.9% 40 ML IV PRN (12:17)
[2018-08-05] MEDS ORDERED: METHYLPREDNISOLONE SOD SUCC 40 MG/ML VIAL IV SCH (18:00)
[2018-08-06] VITALS (61 sets, daily range): BP systolic 110–179; BP diastolic 68–112
[2018-08-06] MEDS: FENTANYL CITRATE/PF 500 MCG in SODIUM CHLORIDE 0.9% 40 ML IV PRN (00:08)
[2018-08-06] MEDS: SODIUM CHLORIDE 0.45% 1,000 ML IV SCH ×2 (00:11→13:28)
[2018-08-06] MEDS: METHYLPREDNISOLONE SOD SUCC 125 MG/2 ML VIAL IV SCH ×3 (00:11→13:27)
[2018-08-06] MEDS: IPRATROPIUM/ALBUTEROL 0.5-3(2.5)MG/3ML NEB HHN SCH ×6 (00:31→21:11)
[2018-08-06 05:12] LABS: HEMATOCRIT. 35.5 % (42.0-52.0); HEMOGLOBIN. 11.9 g/dL (14.0-18.0); MEAN CORPUSCULAR HEMOGLOBIN 31.2 pg (28.0-32.0); MEAN PLATELET VOLUME 6.5 fl (7.4-10.4); PLATELET 290 x1000/uL (130-400); RED BLOOD CELL COUNT 3.82 mill/uL (4.7-6.1); RED CELL DISTRIBUTION WIDTH 14.1 % (11.6-14.6)
[2018-08-06 05:23] LABS: CHLORIDE 107 mEq/L (98-107)
[2018-08-06 07:12] LABS: PLATELET ESTIMATE NORMAL
[2018-08-06] MEDS ORDERED: LOSARTAN POTASSIUM 25 MG TABLET PO SCH (09:00)
[2018-08-06] MEDS: PANTOPRAZOLE SODIUM 40 MG/VIAL IV SCH (09:04)
[2018-08-06] MEDS: ENOXAPARIN 40MG/0.4ML SYR SUBCUT SCH (09:05)
[2018-08-06] MEDS ORDERED: CLONIDINE 0.1MG TABLET PO PRN (09:30)
[2018-08-06 09:56] LABS: BG BASE EXCESS 2.7 mmol/L (-2.0-2.0); BG CARBOXYHEMOGLOBIN 0.6 % (0.5-1.5); BG FRACTION INSPIRED OXYGEN 40; BG HCO3 ACT 27.1 mmol/L (22.0-26.0); BG METHEMOGLOBIN 0.6 % (0.0-1.5); BG OXYGEN SATURATION 93.9 % (92.0-98.5); BG OXYHEMOGLOBIN 92.8 % (94.0-97.0); BG PCO2 40.8 mmHg (35.0-45.0); BG PO2 68.3 mmHg (75.0-100.0); BG PRESSURE SUPPORT 8; BG SAMPLE SITE RIGHT RADIAL; BG TOTAL HEMOGLOBIN 13.1 g/dL (12.0-18.0); BG VENT MODE VENT - CPAP
[2018-08-06] MEDS ORDERED: LOSARTAN POTASSIUM 50 MG TABLET PO NR (11:45)
[2018-08-06] MEDS ORDERED: HYDRALAZINE 20MG/ML VIAL IV PRN (11:45)
[2018-08-06] MEDS: METHYLPREDNISOLONE SOD SUCC 40 MG/ML VIAL IV SCH ×2 (14:56→21:09)
[2018-08-06] MEDS: ONDANSETRON HCL 4MG/2ML INJ IV PRN (14:56)
[2018-08-06] MEDS: BUDESONIDE 0.5MG/2ML NEB HHN SCH ×2 (15:54→21:11)
[2018-08-06] MEDS: MECLIZINE 25MG TABLET PO PRN (17:15)
[2018-08-06] MEDS: NICOTINE 21MG PATCH TD SCH (18:47)
[2018-08-07] VITALS (19 sets, daily range): BP systolic 115–159; BP diastolic 68–96
[2018-08-07] MEDS: IPRATROPIUM/ALBUTEROL 0.5-3(2.5)MG/3ML NEB HHN SCH ×6 (00:25→20:14)
[2018-08-07] MEDS: MECLIZINE 25MG TABLET PO PRN (00:57)
[2018-08-07] MEDS: ONDANSETRON HCL 4MG/2ML INJ IV PRN (01:05)
[2018-08-07] MEDS: SODIUM CHLORIDE 0.45% 1,000 ML IV SCH (03:07)
[2018-08-07 05:09] LABS: HEMATOCRIT. 36.1 % (42.0-52.0); HEMOGLOBIN. 12.4 g/dL (14.0-18.0); LYMPHOCYTES % 7.2 % (20.0-50.0); MEAN CORPUSCULAR HEMOGLOBIN 31.3 pg (28.0-32.0); MEAN CORPUSCULAR VOLUME 91.1 fL (80.0-94.0); MEAN PLATELET VOLUME 6.7 fl (7.4-10.4); MONOCYTES % 11.4 % (2.0-8.0); NEUTROPHILS % 81.4 % (40.0-76.0); PLATELET 301 x1000/uL (130-400); RED BLOOD CELL COUNT 3.96 mill/uL (4.7-6.1)
[2018-08-07 05:46] LABS: CHLORIDE 106 mEq/L (98-107)
[2018-08-07] MEDS: METHYLPREDNISOLONE SOD SUCC 40 MG/ML VIAL IV SCH ×3 (06:15→21:51)
[2018-08-07] MEDS: BUDESONIDE 0.5MG/2ML NEB HHN SCH ×2 (08:05→20:14)
[2018-08-07] MEDS: LOSARTAN POTASSIUM 100 MG TABLET PO SCH (08:44)
[2018-08-07] MEDS: PANTOPRAZOLE SODIUM 40 MG/VIAL IV SCH (08:44)
[2018-08-07] MEDS: ENOXAPARIN 40MG/0.4ML SYR SUBCUT SCH (08:45)
[2018-08-07] MEDS: NICOTINE 21MG PATCH TD SCH (08:45)
[2018-08-08] MEDS: IPRATROPIUM/ALBUTEROL 0.5-3(2.5)MG/3ML NEB HHN SCH ×4 (00:25→13:13)
[2018-08-08 00:34] VITALS: BP 143/90
[2018-08-08 04:00] VITALS: BP 147/95
[2018-08-08] MEDS: METHYLPREDNISOLONE SOD SUCC 40 MG/ML VIAL IV SCH (05:37)
[2018-08-08 08:00] VITALS: BP 149/97
[2018-08-08] MEDS: BUDESONIDE 0.5MG/2ML NEB HHN SCH (09:07)
[2018-08-08] MEDS: PANTOPRAZOLE SODIUM 40 MG/VIAL IV SCH (10:10)
[2018-08-08] MEDS: ENOXAPARIN 40MG/0.4ML SYR SUBCUT SCH (10:11)
[2018-08-08] MEDS: LOSARTAN POTASSIUM 100 MG TABLET PO SCH (10:11)
[2018-08-08] MEDS: NICOTINE 21MG PATCH TD SCH (10:11)
[2018-08-08 12:00] VITALS: BP 163/103
[2018-08-08 13:46] VITALS: BP 149/97
[2018-08-09] MEDS ORDERED: FAMOTIDINE 20MG TABLET PO SCH (09:00)
== END 2018-08-08 14:56 | disposition home or self-care (01) | DRG 133 ==
LOC: ER 23:54 → MICUNO 08-03 03:45 → EDBEDREQSVC 08-03 04:13 → EDBEDREQ 08-03 04:13 → EDBEDREQTM 08-03 04:13 → ENRESERV 08-03 07:23 → 7WST 08-07 17:20
PROVIDERS: ADMIT Internal Medicine; ATTEND Internal Medicine
PROC: 5A1945Z Respiratory Ventilation, 24-96 Consecutive Hours (ICD-10-PCS; principal; 2018-08-03)
PROC: 0BH18EZ Insertion of Endotracheal Airway into Trachea, Via Natural or Artificial Opening Endoscopic (ICD-10-PCS; 2018-08-03)
PROC: 5A09357 Assistance with Respiratory Ventilation, Less than 24 Consecutive Hours, Continuous Positive Airway Pressure (ICD-10-PCS; 2018-08-03)
DX: J96.02 Acute respiratory failure with hypercapnia (principal); J68.0 Bronchitis and pneumonitis due to chemicals, gases, fumes and vapors; J44.1 Chronic obstructive pulmonary disease with (acute) exacerbation; E87.8 Other disorders of electrolyte and fluid balance, not elsewhere classified; E87.2 Acidosis; I50.9 Heart failure, unspecified; I11.0 Hypertensive heart disease with heart failure; D64.9 Anemia, unspecified; B19.20 Unspecified viral hepatitis C without hepatic coma; F14.10 Cocaine abuse, uncomplicated; F17.210 Nicotine dependence, cigarettes, uncomplicated; Z86.73 Personal history of transient ischemic attack (TIA), and cerebral infarction without residual deficits; Z88.9 Allergy status to unspecified drugs, medicaments and biological substances; Z71.6 Tobacco abuse counseling
CPT/HCPCS: 36415; 36600; 71045; 74018; 80048; 80305; 82375; 82805; 83605; 83880; 84478; 84484; 92610; 93005; 93970; 94002; 94003; 94640; 94660; 96365; 96366; 96375; 97162; 97165; 99291; C9113; J0330; J0360; J1650; J2250; J2405; J2704; J2920; J2930; J3010; J3105; J3475; J3490; J7030; J7060; J7611; J7620; J7626; J8597; A4315

== ENCOUNTER 2019-05-09 15:00 | Inpatient (IN) | payer MEDICAID ==
[~2019-05-09] VITALS: Ht 175.3 cm; Wt 89.0 kg
[~2019-05-09 15:00] MED LIST changes: -ALBU6.7H IH; +ALBU6.7H11 IH; +FLUT15.844 BOTHNSTRLS; -FLUT15.88 BOTHNSTRLS; -LOSA100T14 PO; +LOSA100T32 PO; -MELA3TAB PO; +MELA3TAB63 PO
[2019-05-09] MEDS ORDERED: IPRATROPIUM BROMIDE (0.02%) 0.5MG/2.5ML NEB HHN STA (15:04)
[2019-05-09] MEDS ORDERED: METHYLPREDNISOLONE SOD SUCC 125 MG/2 ML VIAL IV STA (15:04)
[2019-05-09] MEDS ORDERED: ALBUTEROL (0.083%) 2.5MG/3ML NEB HHN STA (15:04)
[2019-05-09] MEDS ORDERED: MAGNESIUM 2 G PREMIX 50 ML IV ONE (15:15)
[2019-05-09] MEDS ORDERED: ASPIRIN 81MG TABLET PO ONE (15:15)
[2019-05-09 15:37] LABS: BASOPHILS % 0.3 % (0.0-2.0); EOSINOPHILS % 3.1 % (0.0-5.0); HEMATOCRIT. 40.1 % (42.0-52.0); HEMOGLOBIN. 13.4 g/dL (14.0-18.0); LYMPHOCYTES % 22.9 % (20.0-50.0); MEAN CORPUSCULAR VOLUME 92.8 fL (80.0-94.0); MEAN PLATELET VOLUME 6.4 fl (7.4-10.4); MONOCYTES % 14.4 % (2.0-8.0); NEUTROPHILS % 59.3 % (40.0-76.0); PLATELET 402 x1000/uL (130-400); RED BLOOD CELL COUNT 4.32 mill/uL (4.7-6.1); RED CELL DISTRIBUTION WIDTH 13.8 % (11.6-14.6)
[2019-05-09 15:42] LABS: CHLORIDE 110 mEq/L (98-107)
[2019-05-09 15:43] LABS: PARTIAL THROMBOPLASTIN TIME 27.8 sec (23.4-31.0); PROTHROMBIN TIME 10.3 sec (9.6-11.0)
[2019-05-09 16:11] LABS: BG BASE EXCESS 0.8 mmol/L (-2.0-2.0); BG BILEVEL POS AIRWAY PRESSURE 15/5 (16); BG CARBOXYHEMOGLOBIN 0.9 % (0.5-1.5); BG DEOXYHEMOGLOBIN 1.8 % (0.0-5.0); BG FRACTION INSPIRED OXYGEN 35; BG HCO3 ACT 26.2 mmol/L (22.0-26.0); BG METHEMOGLOBIN 0.2 % (0.0-1.5); BG OXYGEN SATURATION 98.2 % (92.0-98.5); BG OXYHEMOGLOBIN 97.1 % (94.0-97.0); BG PCO2 44.6 mmHg (35.0-45.0); BG PH 7.386 (7.350-7.450); BG PO2 114.7 mmHg (75.0-100.0); BG SAMPLE SITE RIGHT RADIAL; BG TOTAL HEMOGLOBIN 13.9 g/dL (12.0-18.0); BG VENT MODE MASK - BIPAP
[2019-05-09] MEDS ORDERED: NA PHOS,M-B/NA PHOS,DI-BA ENEMA 118ML PR PRN (18:00)
[2019-05-09] MEDS ORDERED: ACETAMINOPHEN 325MG TABLET PO PRN (18:00)
[2019-05-09] MEDS ORDERED: ONDANSETRON HCL 4MG/2ML INJ IV PRN (18:00)
[2019-05-09] MEDS ORDERED: DOCUSATE SODIUM 100MG CAPSULE PO PRN (18:00)
[2019-05-09] MEDS ORDERED: IPRATROPIUM/ALBUTEROL 0.5-3(2.5)MG/3ML NEB NEB PRN (18:00)
[2019-05-09] MEDS ORDERED: CLONIDINE 0.1MG TABLET PO PRN (18:00)
[2019-05-09] MEDS ORDERED: HYDROCODONE/ACETAMINOPHEN 5/325MG TABLET PO PRN (18:00)
[2019-05-09] MEDS ORDERED: MORPHINE SULFATE 2 MG/ML CPJ (NOT FOR IM USE) IV PRN (18:00)
[2019-05-09] MEDS ORDERED: GUAIFENESIN 200MG/10ML SUGAR FREE UDC PO PRN (18:00)
[2019-05-09] MEDS ORDERED: MAGNESIUM/ALUMINUM HYDROXIDE/SIMETHICONE 30ML UDC PO PRN (18:00)
[2019-05-09 20:00] LABS: CHLORIDE 108 mEq/L (98-107)
[2019-05-09 21:00] VITALS: BP 146/90
[2019-05-09] MEDS ORDERED: KCL 10MEQ/50ML PREMIX 50 ML IV NR (21:00)
[2019-05-09 22:00] VITALS: BP 128/90
[2019-05-09] MEDS ORDERED: LEVOFLOXACIN 500MG PREMIX 100 ML IV SCH (22:00)
[2019-05-09] MEDS: METHYLPREDNISOLONE SOD SUCC 125 MG/2 ML VIAL IV SCH (22:02)
[2019-05-09] MEDS: LORAZEPAM 2MG/ML CPJ IV PRN (22:12)
[2019-05-09] MEDS: ENOXAPARIN 40MG/0.4ML SYR SUBCUT SCH (22:12)
[2019-05-10] VITALS (12 sets, daily range): BP systolic 119–146; BP diastolic 68–104
[2019-05-10] MEDS: METHYLPREDNISOLONE SOD SUCC 125 MG/2 ML VIAL IV SCH ×2 (03:04→09:39)
[2019-05-10 07:15] LABS: BASOPHILS % 0.1 % (0.0-2.0); HEMATOCRIT. 36.2 % (42.0-52.0); HEMOGLOBIN. 12.3 g/dL (14.0-18.0); LYMPHOCYTES % 12.9 % (20.0-50.0); MEAN CORPUSCULAR HEMOGLOBIN 31.6 pg (28.0-32.0); MEAN CORPUSCULAR VOLUME 92.6 fL (80.0-94.0); MEAN PLATELET VOLUME 6.7 fl (7.4-10.4); MONOCYTES % 1.4 % (2.0-8.0); NEUTROPHILS % 85.6 % (40.0-76.0); PLATELET 359 x1000/uL (130-400); RED BLOOD CELL COUNT 3.91 mill/uL (4.7-6.1); RED CELL DISTRIBUTION WIDTH 13.9 % (11.6-14.6)
[2019-05-10 08:06] LABS: CHLORIDE 110 mEq/L (98-107)
[2019-05-10 08:17] LABS: LDL CHOLESTEROL 38 mg/dL (5-100)
[2019-05-10 08:18] LABS: HDL CHOLESTEROL 73 mg/dL (40-59); T4 FREE 0.99 ng/dL (0.76-1.46)
[2019-05-10] MEDS: ASPIRIN 81MG EC TABLET PO SCH (09:39)
[2019-05-10] MEDS ORDERED: OMEG-31 MT (10:21)
[2019-05-10] MEDS ORDERED: SERT-112 PO (10:21)
[2019-05-10] MEDS ORDERED: CHOL200026 PO (10:21)
[2019-05-10] MEDS ORDERED: FERR325T6 PO (10:21)
[2019-05-10] MEDS ORDERED: GUAI5LIQ10 (10:21)
[2019-05-10] MEDS ORDERED: OLAN10TA19 MT (10:21)
[2019-05-10] MEDS ORDERED: MOME13HF INH (10:21)
[2019-05-10] MEDS ORDERED: ASCO-386 PO (10:21)
[2019-05-10] MEDS ORDERED: CHOL200077 PO (10:21)
[2019-05-10] MEDS ORDERED: AZIT250T12 PO (10:21)
[2019-05-10] MEDS ORDERED: TAMS-11 PO (10:21)
[2019-05-10 11:38] LABS: T4 FREE 1.01 ng/dL (0.76-1.46)
[2019-05-10] MEDS: IPRATROPIUM/ALBUTEROL 0.5-3(2.5)MG/3ML NEB HHN SCH ×2 (16:21→20:41)
[2019-05-10 16:36] LABS: CREATINE KINASE 474 IU/L (39-308)
[2019-05-10 16:37] LABS: CREATINE KINASE MB FRACTION 4.7 ng/mL (0.5-3.6)
[2019-05-10] MEDS: ENOXAPARIN 40MG/0.4ML SYR SUBCUT SCH (20:36)
[2019-05-10] MEDS: BUDESONIDE 0.5MG/2ML NEB HHN SCH (20:40)
[2019-05-10] MEDS: METHYLPREDNISOLONE SOD SUCC 40 MG/ML VIAL IV SCH (21:27)
[2019-05-10] MEDS: LORAZEPAM 2MG/ML CPJ IV PRN (22:17)
[2019-05-10] MEDS ORDERED: LEVOFLOXACIN 500MG PREMIX 100 ML IV SCH (23:00)
[2019-05-10 23:18] LABS: *AMPHETAMINES SCREEN URINE NEGATIVE (NEGATIVE); *BARBITURATES SCREEN URINE NEGATIVE (NEGATIVE); *BENZODIAZEPINES SCREEN URINE NEGATIVE (NEGATIVE); *COCAINE SCREEN URINE PRESUMTIVE POSITIVE (NEGATIVE); METHADONE URINE SCREEN NEGATIVE (NEGATIVE); OPIATES URINE SCREEN NEGATIVE (NEGATIVE); PHENCYCLIDINE URINE SCREEN NEGATIVE (NEGATIVE)
[2019-05-10 23:19] LABS: CANNABINOID URINE SCREEN NEGATIVE (NEGATIVE)
[2019-05-11] VITALS (9 sets, daily range): BP systolic 110–130; BP diastolic 71–90
[2019-05-11 00:12] LABS: CREATINE KINASE 409 IU/L (39-308)
[2019-05-11 00:13] LABS: CREATINE KINASE MB FRACTION 3.8 ng/mL (0.5-3.6)
[2019-05-11] MEDS: IPRATROPIUM/ALBUTEROL 0.5-3(2.5)MG/3ML NEB HHN SCH ×3 (00:48→07:51)
[2019-05-11] MEDS: METHYLPREDNISOLONE SOD SUCC 40 MG/ML VIAL IV SCH (06:30)
[2019-05-11 07:11] LABS: CREATINE KINASE 376 IU/L (39-308)
[2019-05-11 07:13] LABS: CREATINE KINASE MB FRACTION 3.6 ng/mL (0.5-3.6)
[2019-05-11] MEDS: BUDESONIDE 0.5MG/2ML NEB HHN SCH (07:50)
[2019-05-11] MEDS: ASPIRIN 81MG EC TABLET PO SCH (09:00)
== END 2019-05-11 15:36 | disposition home or self-care (01) | DRG 816 ==
LOC: ER 15:00 → 3WST 17:47 → ENRESERV 20:17
PROVIDERS: ADMIT Internal Medicine; ATTEND Internal Medicine
PROC: 5A09357 Assistance with Respiratory Ventilation, Less than 24 Consecutive Hours, Continuous Positive Airway Pressure (ICD-10-PCS; principal; 2019-05-09)
PROC: 5A09357 Assistance with Respiratory Ventilation, Less than 24 Consecutive Hours, Continuous Positive Airway Pressure (ICD-10-PCS; 2019-05-11)
DX: T40.5X1A Poisoning by cocaine, accidental (unintentional), initial encounter (principal); J96.01 Acute respiratory failure with hypoxia; J69.0 Pneumonitis due to inhalation of food and vomit; R65.10 Systemic inflammatory response syndrome (SIRS) of non-infectious origin without acute organ dysfunction; J68.0 Bronchitis and pneumonitis due to chemicals, gases, fumes and vapors; I11.0 Hypertensive heart disease with heart failure; I50.9 Heart failure, unspecified; I69.351 Hemiplegia and hemiparesis following cerebral infarction affecting right dominant side; F17.210 Nicotine dependence, cigarettes, uncomplicated; F14.10 Cocaine abuse, uncomplicated; D64.9 Anemia, unspecified; G47.00 Insomnia, unspecified; B19.20 Unspecified viral hepatitis C without hepatic coma; F10.10 Alcohol abuse, uncomplicated; J98.11 Atelectasis; I25.10 Atherosclerotic heart disease of native coronary artery without angina pectoris; Z79.899 Other long term (current) drug therapy; Z79.51 Long term (current) use of inhaled steroids; Z79.02 Long term (current) use of antithrombotics/antiplatelets; Z88.8 Allergy status to other drugs, medicaments and biological substances; Z91.013 Allergy to seafood; Y92.89 Other specified places as the place of occurrence of the external cause; Z71.51 Drug abuse counseling and surveillance of drug abuser
CPT/HCPCS: 36415; 36600; 71045; 80048; 80053; 80061; 80305; 82375; 82550; 82553; 82805; 83036; 83880; 84439; 84443; 84484; 85025; 85379; 93005; 93306; 93970; 94640; 94644; 94660; 96365; 96372; 99291; J1650; J1956; J2060; J2920; J2930; J3475; J3480; J7611; J7620; J7626